=== PATIENT | male | born 1940 | race Native Hawaiian/Other Pacific Islander ===

== ENCOUNTER 2017-01-05 07:19 | Day surgery (SDC) | payer OTHER ==
[~2017-01-05] VITALS: Ht 30.5 cm; Wt 0.5 kg
== END 2017-01-05 10:10 | disposition home or self-care (01) ==
LOC: OR 07:19
PROC: 0DJ08ZZ Inspection of Upper Intestinal Tract, Via Natural or Artificial Opening Endoscopic (ICD-10-PCS; principal; 2017-01-05)
DX: K29.70 Gastritis, unspecified, without bleeding (principal); K25.7 Chronic gastric ulcer without hemorrhage or perforation; I85.00 Esophageal varices without bleeding
CPT/HCPCS: J2250; J2704; J3010